=== PATIENT | female | born 1970 | race Caucasian/White ===

== ENCOUNTER 2021-07-28 10:16 | Emergency (ER) | payer OTHER, SELFPAY ==
[2021-07-28 10:26] VITALS: BP 140/101; PULSE 120; RESP 18; TEMP 36.6; O2SAT 98
--- NOTE | 2021-07-28 11:02 | ED.GENADULT ---
HPI - General Adult General Chief complaint: Urogenital-Female Stated complaint: Urinary pain Source: patient Mode of arrival: ambulatory Limitations: no limitations History of Present Illness HPI narrative: Patient presents for evaluation of urinary symptoms for the last 2 days. Symptoms include urinary frequency, incomplete emptying, pressure in suprapubic region and right lower back, and chills. No fever, nausea, vomiting, vaginal bleeding or discharge. She is concerned that she may have a UTI. She has not tried any therapies. No hx of kidney stones. No additional complaints or concerns. Related Data Allergies Allergy/AdvReac Type Severity Reaction Status Date / Time No Known Allergies Allergy Verified 07/28/21 10:24 Review of Systems Review of Systems: CONSTITUTIONAL: Reports chills. Denies fever or sweats. EYES: Denies visual changes, redness, or discharge. ENT: Denies rhinorrhea, congestion, sore throat, or otalgia. CARDIOVASCULAR: Denies chest pain, palpitations, or edema. RESPIRATORY: Denies cough or dyspnea. GASTROINTESTINAL: Reports suprapubic pressure. Denies nausea, vomiting, or diarrhea. GENITOURINARY: Reports urinary frequency and hesitancy. Denies hematuria or dysuria SKIN: Denies rash or itching. MUSCULOSKELETAL: Reports right lower back pain. Denies joint pain, or myalgia. NEUROLOGIC: Denies headache, numbness, dizziness, or weakness. PSYCHIATRIC: Denies anxiety or depression. PMFSH Past Medical History Medical History No pertinent past medical history Surgical History Surgical History (Reviewed 07/28/21 @ 11:06 by Serafin Doss, [facility], ) No pertinent past surgical history Family History Family History (Reviewed 07/28/21 @ 11:07 by Serafin Doss [facility], ) Mother Cardiac arrest Social History Social History (Updated 07/28/21 @ 11:07 by Serafin Doss, [facility], ) Smoking status: Never smoker Living arrangements: with family Gender identity (if verbalized by the patient): Female Sexual Orientation (if Verbalized by the Patient): Straight or Heterosexual Spiritual care concerns: No Exam Narrative: GENERAL: Well-appearing, well-nourished, and in no acute distress. HEAD: Normocephalic, atraumatic. EYES: PERRLA and EOMI. ENT: Nares clear, no rhinorrhea or epistaxis. Mucous membranes moist. Oropharynx without tonsillar hypertrophy exudate or other lesions. Bilateral TMs pearly kuo nonbulging NECK: Supple. No adenopathy or masses. No carotid bruits or JVD CHEST: Clear to auscultation. No respiratory distress. No wheezes rales or rhonchi HEART: Regular rate and rhythm. No murmur heard. Normal peripheral pulses. ABDOMEN: Soft, nontender, nondistended, normal active bowel sounds. BACK: No CVA tenderness EXTREMITIES: Normal range of motion. No edema. SKIN: Warm, dry, no rash. NEURO: No focal deficits. Alert and oriented x3. PSYCH: Normal mood and affect. Course Course Emergency Course: This is a 51-year-old female here today with complaints of urinary symptoms. She has leukocytes in urine, consistent with UTI. She may have also passed a kidney stone. We will treat her with macrobid. She was advised to follow up outpatient for further evaluation and treatment. She should go to ER for intractable pain, inability to void, intractable vomiting. Pt in agreement with plan of care. Level of Care: Express Care Visit Vital Signs Vital signs: Vital Signs Temperature 36.6 C 07/28/21 10:26 Pulse Rate 120 H 07/28/21 10:26 Respiratory Rate 18 07/28/21 10:26 Blood Pressure 140/101 H 07/28/21 10:26 Pulse Oximetry 98 07/28/21 10:26 Temperature 36.6 C 07/28/21 10:26 Pulse Rate 120 H 07/28/21 10:26 Respiratory Rate 18 07/28/21 10:26 Blood Pressure 140/101 H 07/28/21 10:26 Pulse Oximetry 98 07/28/21 10:26 Medical Decision Making Differential Diagnosis Differential Diagn
== END 2021-07-28 11:12 | disposition home or self-care (01) ==
PROVIDERS: Emergency Provider Nurse Practitioner; PCP Family Medicine
DX: N30.00 Acute cystitis without hematuria (principal)
CPT/HCPCS: 81003; 87077; 87086; 87186; 99213; G0463

== ENCOUNTER 2022-10-20 11:21 | Emergency (ER) | payer OTHER, SELFPAY ==
[2022-10-20 11:28] VITALS: BP 143/86; PULSE 103; RESP 16; TEMP 36.3; O2SAT 100
--- NOTE | 2022-10-20 11:48 | ED.GENADULT ---
HPI - General Adult General Chief complaint: Upper Respiratory Infection Stated complaint: headache,sinus pressure Time Seen by Provider: 10/20/22 11:40 Source: patient, RN notes reviewed and old records reviewed Mode of arrival: ambulatory Limitations: no limitations History of Present Illness HPI narrative: 52 year old female who presents to [facility] care with complaints of left sided facial pressure, pain to area behind left ear, left forehead pain nasal congestion with drainage. Patient reports that she feels some dizziness with position changes at times, has been taking Zyrtec D for her symptoms. Patient reports that she does not have ear pain or any sore throat does have history of sinus problems MD complaint: sinus congestion, sinus pressure and drainage. Onset (ago): day(s) (4) Severity scale (1-10): 3 Treatments prior to arrival: other Related Data Home Medications Medication Instructions Recorded Confirmed atorvastatin 20 mg tablet 20 mg PO HS 10/20/22 10/20/22 bupropion HCl 300 mg 24 hr tablet, 300 mg PO DAILY 10/20/22 10/20/22 extended release cetirizine 10 mg tablet 10 mg PO DAILY 10/20/22 10/20/22 estradiol 0.075 mg/24 hr 1 patch transdermal USEASDIRECTD 10/20/22 10/20/22 semiweekly transdermal patch ibuprofen 800 mg tablet 800 mg PO QID 10/20/22 10/20/22 losartan 50 mg tablet 50 mg PO DAILY 10/20/22 10/20/22 pantoprazole 40 mg tablet,delayed 40 mg PO BID 10/20/22 10/20/22 release venlafaxine 75 mg capsule,extended 75 mg PO DAILY 10/20/22 10/20/22 release 24 hr Allergies Allergy/AdvReac Type Severity Reaction Status Date / Time No Known Allergies Allergy Verified 10/20/22 11:33 Review of Systems Review of Systems: CONSTITUTIONAL: Denies malaise, chills, sweats, or fever. EYES: Denies visual changes, redness, or discharge. ENT: Reports rhinorrhea, congestion, sinus pain,no otalgia or sore throat. CARDIOVASCULAR: Denies chest pain, palpitations, or edema. RESPIRATORY: Reports no cough.? Denies dyspnea. GASTROINTESTINAL: Denies abdominal pain, nausea, vomiting, diarrhea SKIN: Denies rash or itching. MUSCULOSKELETAL: Denies myalgia. NEUROLOGIC: Reports headache. All systems reviewed & are unremarkable except as noted in HPI and below PMFSH Past Medical History Medical History (Updated 10/20/22 @ 16:47 by Arcelia Mejias NP) History of sinus problem Hyperlipidemia Hypertension Surgical History Surgical History No pertinent past surgical history Family History Family History Mother Cardiac arrest Social History Social History Smoking status: Never smoker Living arrangements: with family Gender identity (if verbalized by the patient): Female Sexual Orientation (if Verbalized by the Patient): Straight or Heterosexual Spiritual care concerns: No Comments At time of signature, agree with nursing past medical, surgical, social and family history. There is no relevant family history pertinent to the presenting complaint Exam Narrative: GENERAL: Well-appearing, well-nourished, and in no acute distress. HEAD: Normocephalic EYES: PERRLA, conjunctivae clear ENT: Nares clear, turbinates edematous and erythematous, clear to light yellow discharge.Left sided facial, temporal and forehead pain/pressure. Mucous membranes moist. TM pearly kuo with dull light reflex bilaterally; no tragal tenderness. Oropharynx erythematous without lesions. Tonsils not enlarged and without exudate, no drooling, no hoarseness, no trismus, uvula midline. NECK: Supple. No lymphadenopathy CHEST: Clear to auscultation, breath sounds equal. No wheezing, rhonchi, rales, or stridor. No respiratory distress, speaks in full sentences.SAO2 100% on room air HEART: Regular rate and rhythm. No murmur heard.
== END 2022-10-20 12:08 | disposition home or self-care (01) ==
PROVIDERS: Emergency Provider Registered Nurse; PCP Family Medicine
DX: J01.40 Acute pansinusitis, unspecified (principal); E78.5 Hyperlipidemia, unspecified; I10 Essential (primary) hypertension
CPT/HCPCS: 99213; G0463

== ENCOUNTER 2024-12-27 13:30 | Outpatient (CLI) | payer OTHER, SELFPAY ==
--- NOTE | ~2024-12-27 | MM_ITS ---
EXAMINATION: MM screening [facility] HISTORY: Screening TECHNIQUE: Craniocaudal and mediolateral oblique 3-D tomosynthesis images were obtained and synthetic 2-D images were generated. CAD analysis was submitted and interpreted. COMPARISON: Comparison to multiple prior studies sequentially, with oldest reviewed study dated 03/03. BREAST PARENCHYMAL COMPOSITION: The breasts are heterogeneously dense, which may obscure small masses . FINDINGS: There is no evidence of suspicious mass, calcification, or architectural distortion to sug gest malignancy in either breast. IMPRESSION: 1. No mammographic evidence of malignancy. 2. Recommend routine screening mammography in one year. BI-RADS Category 1: Negative Reviewed, dictated and finalized at location B.
== END 2024-12-27 13:31 | disposition home or self-care (01) ==
PROVIDERS: PCP Family Medicine; Visit Provider Nurse Practitioner
DX: Z12.31 Encounter for screening mammogram for malignant neoplasm of breast (principal)
CPT/HCPCS: 77063; 77067